=== PATIENT | male | born 1965 | race Caucasian/White ===

== ENCOUNTER 2020-08-18 10:49 | Outpatient (CLI) | payer OTHER ==
--- NOTE | 2020-08-18 11:26 | RAD ---
EXAM: 2 views of the right knee HISTORY: Right knee pain COMPARISON: None FINDINGS: No knee effusion is seen. There is no evidence of acute fracture or dislocation. No signifi cant degenerative changes are seen. Surgical clips are seen posterior to the knee. There appears to be a bypass graft posterior to the knee. IMPRESSION: No evidence of acute osseous abnormality.
--- NOTE | 2020-08-18 11:33 | RAD ---
PA AND LATERAL CHEST: HISTORY: Disability exam. FINDINGS: Heart size is borderline size. There are atherosclerotic changes in the aorta. Chronic-appearing inez ng changes are seen. No focal infiltrates. Arthritic changes of the spine are seen. Surgical clips are seen overlying the lower cervical region. IMPRESSION: 1. Borderline to minimal cardiomegaly with chronic-appearing lung changes. 2. Atherosclerosis. POS: HEMANT
== END 2020-08-18 10:50 | disposition home or self-care (01) ==
LOC: BICRAD 10:49
PROVIDERS: ATTEND Internal Medicine
DX: Z02.71 Encounter for disability determination (principal); I51.7 Cardiomegaly; I70.0 Atherosclerosis of aorta; J98.4 Other disorders of lung
CPT/HCPCS: 71046